=== PATIENT | male | born 1970 | race African-American/Black ===

== ENCOUNTER → 2019-07-03 | Outpatient (CLI) | payer OTHER, SELFPAY ==
[2019-07-03 11:47] LABS: Pathologist Comment May follow
[2019-07-03 12:17] LABS: RBC /Synovial Fluid 3.949 10^6/uL (0); Synovial Fld Mononuclear WBC % 55.7 %; Synovial Fld Polynuclear WBC # 1.308 10^3/uL; Synovial Fld Polynuclear WBC % 44.3 %
[2019-07-03 12:42] LABS: AUTO B FLUID DILUENT BKGD CT WBC <0.1 RBC <0.01 (W<.1,R<.01); Appearance /Synovial Fluid Turbid (CLEAR); Color / Synovial Fluid Red (Pale Yellow); Source- Body Fluid SYNOVIAL
[2019-07-03 12:53] LABS: Lymph 48 %; Monocyte /Synovial Fluid 12 %; Neutrophil 37 % (0-25)
[2019-07-03 12:54] LABS: Body Fluid QC Type(s) BF1Q,BF2Q; Other Cell /Synovial Fluid 3 %
[2019-07-06 11:42] LABS: Pathologist Review Reviewed
[2019-07-31 10:00] LABS: CRYSTALS, BODY FLUID Other, see comment
== END | disposition home or self-care (01) ==
PROVIDERS: PCP Internal Medicine; Referring Provider Orthopaedic Surgery; Visit Provider Orthopaedic Surgery
DX: M70.31 Other bursitis of elbow, right elbow (principal)
CPT/HCPCS: 87070; 87075; 87205; 89050; 89051; 89060